=== PATIENT | male | born 1995 | race Caucasian/White ===

== ENCOUNTER 2016-10-18 13:03 | Emergency (ER) | payer OTHER ==
[~2016-10-18] VITALS: Ht 177.8 cm; Wt 74.1 kg
[2016-10-18 13:05] VITALS: TEMP 37.1; Ht 177.8 cm; Wt 74.1 kg
[2016-10-18] MEDS ORDERED: SODIUM CHLORIDE 0.9% 1000ML 1,000 ML IV STA ×2 (13:12)
[2016-10-18 13:36] LABS: BASO % 0.2 %; BASO ABS # 0.02 K/uL (0-0.2); COMPLETE YES; HEMATOCRIT 44.1 % (42-52); IG% 0.3 %; LYMPH % 12.3 %; LYMPH ABS # 1.14 K/uL (1.2-3.4); MEAN CELL VOLUME 95.2 fL (80-100); MEAN CORPUSCULAR HEMOGLOBIN 33.3 pg (25-34); MEAN CORPUSCULAR HGB CONC 34.9 g/dl (32-36); MEAN PLATELET VOLUME 9.7 fL (7.4-10.4); MONO % 9.2 %; PLATELET COUNT 236 K/uL (130-400); RED BLOOD COUNT 4.63 M/uL (4.7-6.1); WHITE BLOOD COUNT 9.26 K/uL (4.8-10.8)
[2016-10-18 13:56] LABS: BUN/CREATININE RATIO 6.7 (10-20); CALCIUM 8.8 mg/dl (8.5-10.1); CREATININE 0.81 mg/dl (0.60-1.40); POTASSIUM 3.4 mmol/L (3.5-5.1)
--- NOTE | 2016-10-18 15:28 | DIAGNOSTIC IMAGING REPORT ---
RIGHT RIBS UNILATERAL WITH PA CHEST CLINICAL HISTORY: Right posterior lower rib pain. COMPARISON STUDY: No previous studies for comparison. FINDINGS: There is no pneumothorax or pleural effusion. Lungs are clear. Cardiac size is normal. Mediastinal contours are normal. No acute right-sided rib fractures are identified. IMPRESSION: No acute cardiopulmonary findings. No acute right rib fractures. Electronically signed by: Rayshawn Pardo M.D. 10/18/2016 3:26 PM Dictated Date/Time: 10/18/2016 3:20 PM
[2016-10-18 16:44] LABS: URINE APPEARANCE CLEAR (CLEAR); URINE BILIRUBIN NEG (NEG); URINE COLOR YELLOW; URINE NITRITE NEG (NEG); URINE PH 7.5 (4.5-7.5); URINE SPECIFIC GRAVITY 1.024 (1.000-1.030); UROBILINOGEN NEG (NEG); ZZUR CULT IF INDIC CLEAN CATCH NO
[2016-10-18 16:51] LABS: MANUAL MICROSCOPIC REQUIRED? NO; REVIEW REQ? NO
[2016-10-18] MEDS ORDERED: OPTIRAY 320 IV PRN (17:15)
--- NOTE | 2016-10-18 17:37 | DIAGNOSTIC IMAGING REPORT ---
CT ANGIOGRAM OF THE CHEST CLINICAL HISTORY: Right chest pain. Possible pulmonary embolus. COMPARISON STUDY: Chest x-ray dated 10/18/2016 TECHNIQUE: Following the IV administration of 88 mL of Optiray-320, CT angiogram of the thorax was performed from the thoracic inlet to the lung bases utilizing the pulmonary embolus protocol. Images are reviewed in the axial, sagittal, and coronal planes. IV contrast was administered without complication. MIP imaging was performed. CT DOSE: 290.93 mGy.cm FINDINGS: No pathologically enlarged axillary mediastinal or hilar lymph nodes were visualized. There was no evidence of thoracic aortic dilatation. There were no pulmonary artery filling defects to indicate acute pulmonary embolism. No pleural effusions are visualized. There was no evidence of focal pulmonary consolidation. IMPRESSION: No acute intrathoracic findings. No CT evidence of acute pulmonary embolism. No evidence of focal pulmonary consolidation. No evidence of pneumothorax. Electronically signed by: Navi Ramírez M.D. 10/18/2016 5:35 PM Dictated Date/Time: 10/18/2016 5:32 PM
[2016-10-18 18:16] VITALS: BP 118/68; PULSE 94; O2SAT 99
--- NOTE | 2016-10-18 22:21 | EMERGENCY ROOM VISIT NOTE ---
History Report prepared by Elly: Katey Samayoa Under the Supervision of: Dr. John Robert M.D. First contact with patient: 13:11 Chief Complaint: ABDOMINAL PAIN Stated Complaint: RIGHT UPPER QUAD PAIN Nursing Triage Summary: See triage note. Pt c/o pain in upper right abdomen around to back. Has had pain for over a week, began while he was in [place]. Has had similar pain after he drinks alcohol but usually the pain only lasts for one day then subsides. Patient denies n/v/d History of Present Illness The patient is a 21 year old male who presents to the Emergency Room with complaints of worsening right flank discomfort that initially started one week ago. He currently rates his discomfort as an 8.5/10 in severity. The patient states that one week ago he was on vacation in [place] and states that one evening he drank a lot, but denies drinking heavily. He states that he woke up the next morning he woke up and noticed the pain and states that since then the pain has worsened. The patient states that this morning he had difficulty standing from the couch this morning due to the pain. He denies any alcohol intake since the pain began. The patient states that he fell four months ago onto his back, but denies any recent trauma. He states that deep breathing, movement, and pressure on the area worsens his discomfort, but rest alleviates his discomfort. The patient states that he has experienced this pain in the past after drinking for a day to a day and a half, but states that the pain always went away. The patient's friend notes that the patient has had significant weight loss in the past few months. He additionally notes that the patient traveled to [place] in August. The patient notes a history of hemorrhoids, but denies any previous surgeries. Pt denies LOC, headache, fevers , chills, diaphoresis, visual changes, cough, sore throat, runny nose, neck pain , chest pain, breathing difficulties, nausea, vomiting, back pain, melena, hematochezia, urinary symptoms, swelling in the lower extremities, numbness, weakness, lymphadenopathy, bruising, rash, or other complaints. Source of History: patient, friend Onset: one week ago Position: other (right flank) Symptom Intensity: 8.5/10 Timing: worsening Modifying Factors (Worsening): breathing (deep), movement, other (pressure) Review of Systems See HPI for pertinent positives and negatives. A total of ten systems were reviewed and were otherwise negative. Past Medical & Surgical Medical Problems: (1) Alcoholic intoxication Family History No pertinent family history stated. Social History Smoking Status: Current Every Day Smoker Alcohol Use: occasionally Drug Use: none Occupation Status: [employer] Current/Historical Medications No Active Prescriptions or Reported Meds Allergies Coded Allergies: No Known Allergies (Unverified , 10/18/16) Physical Exam Vital Signs Date Time Temp Pulse Resp B/P Pulse Ox O2 Delivery O2 Flow Rate FiO2 10/18/16 18:16 94 18 118/68 99 10/18/16 16:30 56 16 135/81 98 Room Air 10/18/16 13:05 37.1 113 18 153/97 99 Room Air Physical Exam GENERAL: Awake, alert, well-appearing, in no distress HENT: Normocephalic, atraumatic. Oropharynx unremarkable. EYES: Normal conjunctiva. Sclera non-icteric. NECK: Supple. No nuchal rigidity. FROM. No JVD. RESPIRATORY: Clear to auscultation. CARDIAC: Regular rate, normal rhythm. Extremities warm and well perfused. Pulses equal. ABDOMEN: Soft, non-distended. No tenderness to palpation. Negative Parisi sign. No tenderness to percussion. No rebound or guarding. No masses. RECTAL: Deferred. MUSCULOSKELETAL: Point tenderness over the right posterior, inferior ribs at the scapular line. Palpation reproduces the patient's pain that he experiences with movement, coughing or deep breathing. Chest examination reveals no tenderness. The back is symmetrical on inspection without obvious abnormality. There is no CVA tenderness to palpation. No joint edema. LOWER EXTREMITIES: Calves are equal size bilaterally and non-tender. No edema. No discoloration. NEURO: Normal sensorium. No sensory or motor deficits noted. SKIN: No rash or jaundice noted. Medical Decision & Procedures ER Provider Diagnostic Interpretation: X-ray: Per my interpretation, radiologist review. RIGHT RIBS UNILATERAL WITH PA CHEST CLINICAL HISTORY: Right posterior lower rib pain. COMPARISON STUDY: No previous studies for comparison. FINDINGS: There is no pneumothorax or pleural effusion. Lungs are clear. Cardiac size is normal. Mediastinal contours are normal. No acute right-sided rib fractures are identified. IMPRESSION: No acute cardiopulmonary findings. No acute right rib fractures. Electronically signed by: Rayshawn Pardo M.D. 10/18/2016 3:26 PM Dictated Date/Time: 10/18/2016 3:[address]: Radiology results as stated below per my review and radiologist interpretation CT ANGIOGRAM OF THE CHEST CLINICAL HISTORY: Right chest pain. Possible pulmonary embolus. COMPARISON STUDY: Chest x-ray dated 10/18/2016 TECHNIQUE: Following the IV administration of 88 mL of Optiray-320, CT angiogram of the thorax was performed from the thoracic inlet to the lung bases utilizing the pulmonary embolus protocol. Images are reviewed in the axial, sagittal, and coronal planes. IV contrast was administered without complication. MIP imaging was performed. CT DOSE: 290.93 mGy.cm FINDINGS: No pathologically enlarged axillary mediastinal or hilar lymph nodes were visualized. There was no evidence of thoracic aortic dilatation. There were no pulmonary artery filling defects to indicate acute pulmonary embolism. No pleural effusions are visualized. There was no evidence of focal pulmonary consolidation. IMPRESSION: No acute intrathoracic findings. No CT evidence of acute pulmonary embolism. No evidence of focal pulmonary consolidation. No evidence of pneumothorax. Electronically signed by: Navi Ramírez M.D. 10/18/2016 5:35 PM Dictated Date/Time: 10/18/2016 5:32 PM Laboratory Results 10/18/16 13:25 Red Blood Count 4.63, Mean Corpuscular Volume 95.2, Mean Corpuscular Hemoglobin 33.3, Mean Corpuscular Hemoglobin Concent 34.9, Mean Platelet Volume 9.7, Neutrophils (%) (Auto) 77.0, Lymphocytes (%) (Auto) 12.3, Monocytes (%) (Auto) 9.2, Eosinophils (%) (Auto) 1.0, Basophils (%) (Auto) 0.2, Neutrophils # (Auto) 7.13, Lymphocytes # (Auto) 1.14, Monocytes # (Auto) 0.85, Eosinophils # (Auto) 0.09, Basophils # (Auto) 0.02 10/18/16 13:25 Test 10/18/16 13:25 10/18/16 14:50 10/18/16 16:20 White Blood Count 9.26 K/uL (4.8-10.8) Red Blood Count 4.63 M/uL (4.7-6.1) Hemoglobin 15.4 g/dL (14.0-18.0) Hematocrit 44.1 % (42-52) Mean Corpuscular Volume 95.2 fL (80-100) Mean Corpuscular Hemoglobin 33.3 pg (25-34) Mean Corpuscular Hemoglobin Concent 34.9 g/dl (32-36) Platelet Count 236 K/uL (130-400) Mean Platelet Volume 9.7 fL (7.4-10.4) Neutrophils (%) (Auto) 77.0 % Lymphocytes (%) (Auto) 12.3 % Monocytes (%) (Auto) 9.2 % Eosinophils (%) (Auto) 1.0 % Basophils (%) (Auto) 0.2 % Neutrophils # (Auto) 7.13 K/uL (1.4-6.5) Lymphocytes # (Auto) 1.14 K/uL (1.2-3.4) Monocytes # (Auto) 0.85 K/uL (0.11-0.59) Eosinophils # (Auto) 0.09 K/uL (0-0.5) Basophils # (Auto) 0.02 K/uL (0-0.2) RDW Standard Deviation 47.3 fL (36.4-46.3) RDW Coefficient of Variation 13.8 % (11.5-14.5) Immature Granulocyte % (Auto) 0.3 % Immature Granulocyte # (Auto) 0.03 K/uL (0.00-0.02) Anion Gap 9.0 mmol/L (3-11) Est Creatinine Clear Calc Drug Dose 150.2 ml/min Estimated GFR () 148.3 Estimated GFR (Non- 127.9 BUN/Creatinine Ratio 6.7 (10-20) Calcium Level 8.8 mg/dl (8.5-10.1) Total Bilirubin 0.8 mg/dl (0.2-1) Direct Bilirubin 0.2 mg/dl (0-0.2) Aspartate Amino Transf (AST/SGOT) 11 U/L (15-37) Alanine Aminotransferase (ALT/SGPT) 20 U/L (12-78) Alkaline Phosphatase 58 U/L (45-117) Total Protein 7.2 gm/dl (6.4-8.2) Albumin 4.3 gm/dl (3.4-5.0) Lipase 144 U/L (73-393) D-Dimer 190 ug/L FEU (0-500) Amylase Level 41 U/L (25-115) Urine Color YELLOW Urine Appearance CLEAR (CLEAR) Urine pH 7.5 (4.5-7.5) Urine Specific [place] 1.024 (1.000-1.030) Urine Protein NEG (NEG) Urine Glucose (UA) NEG (NEG) Urine Ketones TRACE (NEG) Urine Occult Blood NEG (NEG) Urine Nitrite NEG (NEG) Urine Bilirubin NEG (NEG) Urine Urobilinogen NEG (NEG) Urine Leukocyte Esterase NEG (NEG) Laboratory results reviewed by me Medications Administered Medications (Trade) Dose Ordered Sig/Jennifer Route Start Time Stop Time Status Last Admin Dose Admin Sodium Chloride 1,000 ml @ 999 mls/hr Q1H1M STAT IV 10/18/16 13:12 10/18/16 14:12 DC 10/18/16 13:32 999 MLS/HR Sodium Chloride (Nss 1000ml) 1,000 ml @ 125 mls/hr Q8H STAT IV 10/18/16 13:12 10/18/16 18:51 DC 10/18/16 14:25 125 MLS/HR ED Course 1312: Ordered Sodium Chloride 1000 ml @ 125 mls/hr IV, Sodium Chloride 1000 ml @ 999 mls/hr IV. 1324: The patient was evaluated in room C11B. A complete history and physical exam was performed. 1515: I reevaluated the patient and he is resting comfortably. 1606: I reevaluated the patient and informed the patient we are waiting on a urinalysis. 1706: I reevaluated the patient and he is resting comfortably. He is going to have a CTA of his chest. 1805: I reevaluated the patient and he is resting comfortably. I discussed the exam findings with him and I discussed the treatment plan. He verbalized complete understanding and agreement. He is ready to go home. Medical Decision Triage Nursing notes reviewed. The patient's presentation and history were concerning for right flank pain. Etiologies such as musculoskeletal, rib fracture, pleurisy, PE, pancreatitis, renal colic, appendicitis, diverticulitis, mesenteric ischemia, aortic pathology , infections, inflammatory bowel disease, PUD, biliary pathology, UTI, as well as others were entertained. The patient was evaluated. Clinically he was doing relatively well unless the area was palpated or he would move. He has been traveling. There is no stigmata of DVT. The patient also notes prior heavy alcohol use just before the onset of symptoms. He denies any trauma. He states he did not drink excessively to black out and remembers the entire time. He had blood work obtained. His CBC was unremarkable. The patient had a normal chemistries and LFTs. The patient had a negative lipase and amylase. A d-dimer was performed due to the patient's travel history and this was negative as well. Rib series was performed and did not reveal any abnormalities. Urinalysis was clean. The pain was not colicky to suggest a kidney etiology. The patient was reevaluated. He notes significant discomfort and by his history none of his diagnostic testing was pointing to any issue. I was concerned about a possible occult rib fracture as well as an underlying lung issue given the pleuritic type nature and discussed advanced imaging with the patient. He underwent CT imaging of the chest which did not reveal any abnormality of the ribs, lung, upper abdomen or soft tissues of the area in question. Given the reproducible nature I suspect that this is musculoskeletal. I discussed conservative management with close outpatient follow-up. The patient was in agreement. He felt comfortable with ibuprofen and warm compresses. The patient worsens in any way he will be back to the Emergency Room for reevaluation. I gave my usual and customary discussion regarding this issue. By the evaluation outlined above other emergent etiologies such as those listed in the differential, as well as others, were deemed relatively unlikely. The patient was informed about the findings as listed above. All questions were answered and he was very pleased with the treatment. Return instructions were outlined and the patient was discharged in stable condition. The patient was referred to [facility] for follow-up this week for a recheck of the current condition. The chart was completed utilizing [employer] Speech voice recognition software. Grammatical errors, random word insertions, pronoun errors, and incomplete sentences are an occasional consequence of this system due to software limitations, ambient noise, and hardware issues. Any formal questions or concerns about the content, text, or information contained within the body of this dictation should be directly addressed to the physician for clarification. Impression Primary Impression: Right flank pain Scribe Attestation The scribe's documentation has been prepared under my direction and personally reviewed by me in its entirety. I confirm that the note above accurately reflects all work, treatment, procedures, and medical decision making performed by me. Departure Information Dispostion Home / Self-Care Prescriptions No Active Prescriptions or Reported Meds Referrals No Doctor, Assigned (PCP) Forms HOME CARE DOCUMENTATION FORM, IMPORTANT VISIT INFORMATION, My [facility] Patient Instructions A Signature Page Additional Instructions Diagnosis: Right flank pain INSTRUCTIONS: Avoid alcohol. Ibuprofen(Motrin, Advil) may be used for fever or pain. Use 600mg every six hours as needed. Take with food. Avoid using more than 2400mg in a 24 hour period. Do not use 2400mg per day for more than three consecutive days without physician direction. Prolonged inappropriate use can lead to stomach upset or ulcers. (AND/OR) Acetaminophen(Tylenol) may be used for fever or pain. Use 1000mg every six hours as needed. Avoid using more than 4000mg in a 24 hour period. Warm compresses for 20 minutes at a time four times daily for 2-3 days. Rest and drink plenty of fluids as tolerated. Continue current medications. Avoid strenuous activities and anything that worsens your pain. Resume normal activities once your symptoms resolve. Return to the ER immediately for worsening or persistent flank pain, chest pain , abdominal pain, vomiting, fevers, chest pains, difficulty breathing, worsening of your condition, or as needed. Follow up with your [facility] in 1-2 days for a recheck of your current condition.
== END 2016-10-18 18:19 | disposition home or self-care (01) ==
LOC: C.EDB 13:04 → C.EDC 18:19
DX: R10.30 Lower abdominal pain, unspecified (principal); F17.200 Nicotine dependence, unspecified, uncomplicated